=== PATIENT | female | born 1960 | race Two or more races ===

== ENCOUNTER → 2016-07-04 | Day surgery (SDC) | payer OTHER ==
[~2016-07-04] MED LIST: MOTRIN400 MG PO
--- NOTE | ~2016-07-04 | OR ---
Unit #: [id number] #: [id number] Patient: VICENTE PHILLIPS [id number] [address] [address] [id number] MR#: [id number] NAME: VICENTE PHILLIPS ROOM: Date of Procedure: 07/04/2016 Admission Date: 07/04/2016 Surgeon: Christoph Becerra M.D. : 1960 Attending Physician: Christoph Becerra M.D. Primary Care Physician: Nick Rhoades M.D. OPERATIVE REPORT PRIMARY CARE PHYSICIAN Nick Rhoades M.D. PREOPERATIVE DIAGNOSES Postprandial dyspepsia, epigastric pain, and early satiety. PROCEDURES PERFORMED Upper gastrointestinal endoscopy and biopsy as well as upper gastrointestinal endoscopy and polypectomy. POSTOPERATIVE DIAGNOSES 1. The patient had distal grade 2 erosive esophagitis. 2. There was a single polyp in the proximal part of the fundus of the stomach. The latter was removed using snare cautery polypectomy. 3. Mild prepyloric antral gastritis. A biopsy was obtained from the antrum for CLOtest. 4. Rest of the examination up to third part of duodenum was normal. RECOMMENDATIONS The patient will be started on pantoprazole or omeprazole 40 mg p.o. daily. She will be followed up in the office in 3 months' time. SEDATION USED MAC. DESCRIPTION OF PROCEDURE Following detailed explanation of the potential risks and complications of upper endoscopy, namely perforation, bleeding, and complication related to sedation, the patient was brought to GI lab and laid in the left lateral decubitus position. Lubricated tip of the Olympus video upper endoscope was passed through the bite block into the proximal esophagus under direct vision. The entire esophageal mucosa was examined. The patient was noted to have grade 2 distal erosive esophagitis. The scope was then advanced into the gastric cavity and the latter was insufflated. Mucosa of the fundus, body, and antrum was examined. Mild prepyloric antral erythema was noted. Pylorus was intubated with visualization of the normal duodenal bulb and second and third part of the duodenum. Upon withdrawal and retroflexion, incisura, cardia, and greater curve was examined and biopsy was obtained from the antrum for CLOtest. In the retroflex position, the polyp that was seen earlier in the antegrade examination was again visualized. The overall appearance is that of a single hyperplastic polyp in the fundus of the stomach. The latter was then removed using Unit #: [id number] #: [id number] Patient: VICENTE PHILLIPS snare cautery polypectomy. Minimal bleeding was noted. The area was thoroughly washed with water and good hemostasis was achieved. The polyp was then retrieved and sent for histology. The scope was then withdrawn in the distal esophagus. The entire esophageal mucosa was examined all the way up to pharynx. No additional findings were noted. The patient tolerated the procedure without any postprocedure complications. Dictated by... Vicki Taveras TD: 07/05/2016 01:34 JOB #: [id number] OPERATIVE REPORT Page 1 of 1 X Christoph Becerra MD X PROCEDURE OPERATIVE NOTE
== END | disposition home or self-care (01) ==
LOC: COPS 07:07 → EDSTATUS 08:30 → COPS 08:30 → CNUC 09:30
DX: K31.7 Polyp of stomach and duodenum (principal); K22.10 Ulcer of esophagus without bleeding; Z90.89 Acquired absence of other organs; Z79.1 Long term (current) use of non-steroidal anti-inflammatories (NSAID)
CPT/HCPCS: 87077; 88305; 88312